=== PATIENT | female | born 1970 | race African-American/Black ===

== ENCOUNTER 2018-05-19 21:09 | Emergency (ER) | payer BC ==
[2018-05-19] MEDS ORDERED: Ketorolac 60 MG/2 ML SDV IM ONE (22:09)
--- NOTE | 2018-05-19 22:12 | EDM.PDOC ---
ED HPI GENERAL MEDICAL PROBLEM - General Chief Complaint: Lower Extremity Injury/Pain Stated Complaint: SPOKE WITH NURSE Time Seen by Provider: 05/19/18 22:06 - History of Present Illness INITIAL COMMENTS - FREE TEXT/NARRATIVE: HISTORY AND PHYSICAL: History of present illness: The patient is a 39-year-old female who presents with right knee pain for the last 2 days after she tripped and fell while at the gym. The patient said that she tripped over a rug and fell directly on the knee and has pain both in the anterior posterior aspects of the knee. She has no other complaints of right hip pain or distal right leg pain and did not pass out or black out and has no head neck or back pain. She has been using [id number] Aleve and last took a dose this morning. She says is worse with weightbearing and she has not been able to stay off of it. Review of systems: As per history of present illness and below otherwise all systems reviewed and negative. Past medical history: As per history of present illness and as reviewed below otherwise noncontributory. Surgical history: As per history of present illness and as reviewed below otherwise noncontributory. Social history: No reported history of drug or alcohol abuse. Family history: As per history of present illness and as reviewed below otherwise noncontributory. Physical exam: HEENT: Atraumatic, normocephalic,, negative for conjunctival pallor or scleral icterus, mucous membranes moist, throat clear, neck supple, nontender, trachea midline. Lungs: Clear to auscultation, breath sounds equal bilaterally, chest nontender. Heart: S1S2, regular rate and rhythm no overt murmurs Abdomen: Soft, nondistended, nontender. NABS Pelvis: Stable nontender. No lateral hip tenderness Genitourinary: Deferred. Rectal: Deferred. Extremities: Atraumatic, negative for cords or calf pain. Neurovascular unremarkable. The patient has full range of motion of all extremities with limited active motion of the right knee but she is able to do it with discomfort. There are no palpable bony deformities appreciated of the knee and there is no distal tib-fib ankle or foot tenderness on the right nor any proximal thigh or hip pain on the right. There are no gross palpable bony deformities of the knee architecture and there is no joint effusion. Neuro: Awake, alert, oriented. Cranial nerves II through XII unremarkable. Cerebellum unremarkable. Motor and sensory unremarkable throughout. Exam nonfocal. Diagnostics: X-ray right knee Therapeutics: Toradol IM crutches and knee immobilizer Impression: Right knee injury Definitive disposition and diagnosis as appropriate pending reevaluation and review of above. Right Knee Pain Score (Numeric/FACES): 10 - Related Data Allergies Allergy/AdvReac Type Severity Reaction Status Date / Time No Known Allergies Allergy Verified 05/19/18 21:34 Home Meds: Home Meds Iron Polysaccharides Complex [Ferrex 150] 150 mg PO DAILY 30 Days #30 cap [Rx] Lisinopril [Prinivil] 20 mg PO DAILY 30 Days #60 tablet 11/30/17 [Rx] atorvaSTATin [Lipitor] 40 mg PO BEDTIME 30 Days #30 tablet 11/30/17 [Rx] metFORMIN [Glucophage XR] 500 mg PO BIDMEALS 30 Days #60 tab.er 11/30/17 [Rx] Past Medical History HEENT History: Reports: None Cardiovascular History: Reports: Hypertension Respiratory History: Reports: None Gastrointestinal History: Reports: None Genitourinary History: Reports: None 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: Musculoskeletal History: Reports: None Neurological History: Reports: None Psychiatric History: Reports: None Endocrine/Metabolic History: Reports: Diabetes, Type II Hematologic History: Reports: None Immunologic History: Reports: None Oncologic (Cancer) History: Reports: None Dermatologic History: Reports: None - Infectious Disease History Infectious Disease History: Reports: Measles, Mumps - Past Surgical History Head Surgeries/Procedures: Reports: None HEENT Surgical History: Reports: None Endocrine Surgical History: Reports: None Neurological Surgical History: Reports: None Musculoskeletal Surgical History: Reports: None Dermatological Surgical History: Reports: None Social & Family History - Family History Family Medical History: Noncontributory - Tobacco Use Smoking Status *Q: Never Smoker - Caffeine Use Caffeine Use: Reports: Coffee - Recreational Drug Use Recreational Drug Use: No Review of Systems - Review of Systems Review Of Systems: ROS reveals no pertinent complaints other than HPI. ED EXAM, GENERAL - Physical Exam Exam: See Below (See dictation) Course - Vital Signs Last Recorded V/S: Last Vital Signs Temp 36.8 C 05/19/18 21:35 Pulse 69 05/19/18 21:35 Resp 18 05/19/18 21:35 BP 185/87 H 05/19/18 21:35 Pulse Ox 99 05/19/18 21:35 - Orders/Labs/Meds Orders: Active Orders 24 hr Category Date Time Status DME for Discharge [COMM] Stat Oth 05/19/18 23:32 Ordered Meds: Medications Discontinued Medications Generic Name Dose Route Start Last Admin Trade Name Mariella PRN Reason Stop Dose Admin Ketorolac Tromethamine 60 mg 05/19/18 22:09 05/19/18 22:34 Toradol IM 05/19/18 22:10 60 mg ONETIME ONE Administration Departure - Departure Time of Disposition: 23:32 Disposition: Home, Self-Care 01 Condition: Good Clinical Impression: Right knee injury Qualifiers: Encounter type: initial encounter Qualified Code(s): S89.91XA - Unspecified injury of right lower leg, initial encounter - Discharge Information Forms: ED Department Discharge Additional Instructions: The following information is given to patients seen in the emergency department who are being discharged to home. This information is to outline your options for follow-up care. We provide all patients seen in our emergency department with a follow-up referral. The need for follow-up, as well as the timing and circumstances, are variable depending upon the specifics of your emergency department visit. If you don't have a primary care physician on staff, we will provide you with a referral. We always advise you to contact your personal physician following an emergency department visit to inform them of the circumstance of the visit and for follow-up with them and/or the need for any referrals to a consulting specialist. The emergency department will also refer you to a specialist when appropriate. This referral assures that you have the opportunity for followup care with a specialist. All of these measure are taken in an effort to provide you with optimal care, which includes your followup. Under all circumstances we always encourage you to contact your private physician who remains a resource for coordinating your care. When calling for followup care, please make the office aware that this follow-up is from your recent emergency room visit. If for any reason you are refused follow-up, please contact the [facility] emergency department at and ask to speak to the emergency department charge nurse. [facility]--Orthopedic clinic Professional Building [address] [place] [id number] Ice and elevate the area as much as possible and wear knee immobilizer at all times your up and about and you may remove at sleep time. Use crutches at all times until you're followed up in the clinic. These call our orthopedics clinic in the morning for follow-up and continue to use [id number] medications for pain management such as Motrin and Aleve and Tylenol. Return to ER as needed and as discussed - My Orders Last 24 Hours: My Active Orders 05/19/18 23:32 DME for Discharge [COMM] Stat - Assessment/Plan Last 24 Hours: My Active Orders 05/19/18 23:32 DME for Discharge [COMM] Stat
--- NOTE | 2018-05-19 23:19 | CR ---
Indication: Fall Technique: Right knee 3 views Comparison: None Findings: Bones: Alignment is normal. No fractures or bone lesions. Joint spaces: No dislocation. Moderate knee effusion. Soft tissues: Unremarkable. Impression: No evidence of fracture or dislocation. Moderate knee effusion. Dictated by Kenrick Kinsey MD @ May 19 2018 11:14PM Signed by Dr. Kenrick Kinsey @ May 19 2018 11:17PM
== END 2018-05-20 00:19 | disposition home or self-care (01) ==
LOC: MW.ED 21:09
DX: S89.91XA Unspecified injury of right lower leg, initial encounter (principal); E11.9 Type 2 diabetes mellitus without complications; I10 Essential (primary) hypertension; Z79.899 Other long term (current) drug therapy; W01.0XXA Fall on same level from slipping, tripping and stumbling without subsequent striking against object, initial encounter
CPT/HCPCS: 73562; 96372; 99283; J1885

== ENCOUNTER 2018-06-10 06:56 | Day surgery (SDC) | payer BC ==
[~2018-06-10 06:56] MED LIST: Lactated Ringers 1,000 ML IV SCH; Sodium Chloride 0.9% 10 ML SDV IV PRN; Sodium Chloride 0.9% 10 ML Syringe FLUSH PRN; Sodium Chloride 0.9% 2.5 ML Syringe FLUSH PRN
[2018-06-10] MEDS ORDERED: Lidocaine 2% 5 ML SDV ONE (06:58)
[2018-06-10] MEDS ORDERED: Ondansetron 4 MG/2 ML SDV ONE (06:58)
[2018-06-10] MEDS ORDERED: Midazolam 1 MG/ML 2 ML SDV ONE (06:59)
[2018-06-10] MEDS ORDERED: fentaNYL 250 MCG/5 ML SDV ONE (06:59)
[2018-06-10] MEDS ORDERED: Propofol 200 MG/20 ML SDV ONE (06:59)
[2018-06-10] MEDS ORDERED: Lidocaine 1% 20 ML MDV ONE (07:33)
[2018-06-10] MEDS ORDERED: ceFAZolin 2 GM in Premix Bag 1 BAG IV SCH (08:00)
[2018-06-10] MEDS ORDERED: Acetaminophen/HYDROcodone 325-5 MG Tab PO PRN (08:00)
[2018-06-10] MEDS ORDERED: ceFAZolin 1 GM Vial ONE (08:06)
[2018-06-10] MEDS ORDERED: Sodium Chloride 0.9% 20 ML ONE (08:06)
--- NOTE | 2018-06-10 08:21 | PCM.PREANE ---
Preanesthetic Assessment - Anesthesia/Transfusion/Family Hx Anesthesia History: No Prior Anesthesia Family History of Anesthesia Reaction: No Transfusion History: No Prior Transfusion(s) - Review of Systems General: No Symptoms Pulmonary: No Symptoms Cardiovascular: No Symptoms Gastrointestinal: No Symptoms Neurological: No Symptoms Other: Reports: None - Physical Assessment NPO Status Date: 06/09/18 O2 Sat by Pulse Oximetry: 94 Respiratory Rate: 16 Vital Signs: Last Vital Signs Temp 97.9 F 06/10/18 07:13 Pulse 75 06/10/18 07:13 Resp 16 06/10/18 07:13 BP 177/90 H 06/10/18 07:13 Pulse Ox 94 L 06/10/18 07:13 Height: 5 ft 4 in Weight: 105.233 kg ASA Class: 2 Mental Status: Alert & Oriented x3 Airway Class: Mallampati = 2 Dentition: Reports: Normal Dentition ROM/Head Extension: Full Lungs: Clear to Auscultation, Normal Respiratory Effort Cardiovascular: Regular Rate, Regular Rhythm - Lab Values: Laboratory Last Values POC Glucose 136 mg/dL (60-110) H 06/10/18 07:20 Urine HCG, Qual NEGATIVE (NEGATIVE) 06/10/18 07:08 - Allergies Allergies/Adverse Reactions: Allergies Allergy/AdvReac Type Severity Reaction Status Date / Time No Known Allergies Allergy Verified 06/05/18 08:24 - Blood Blood Available: No - Anesthesia Plan Pre-Op Medication Ordered: None - Acknowledgements Anesthesia Type Planned: General Anesthesia Pt an Appropriate Candidate for the Planned Anesthesia: Yes Alternatives and Risks of Anesthesia Discussed w Pt/Guardian: Yes Pt/Guardian Understands and Agrees with Anesthesia Plan: Yes Additional Comments: PMH: htn, hle, DM2 PLAN: ga-lma PreAnesthesia Questionnaire HEENT History: Reports: Other (See Below) Other HEENT History: wears glasses Cardiovascular History: Reports: High Cholesterol, Hypertension Respiratory History: Reports: None Gastrointestinal History: Reports: None Genitourinary History: Reports: None [employer]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: Musculoskeletal History: Reports: None Neurological History: Reports: None Psychiatric History: Reports: None Endocrine/Metabolic History: Reports: Diabetes, Type II, Obesity/BMI 30+ Hematologic History: Reports: Anemia Immunologic History: Reports: None Oncologic (Cancer) History: Reports: None Dermatologic History: Reports: None - Infectious Disease History Infectious Disease History: Reports: Measles, Mumps - Past Surgical History Head Surgeries/Procedures: Reports: None HEENT Surgical History: Reports: None Cardiovascular Surgical History: Reports: None Respiratory Surgical History: Reports: None GI Surgical History: Reports: None Female Surgical History: Reports: None Endocrine Surgical History: Reports: None Neurological Surgical History: Reports: None Musculoskeletal Surgical History: Reports: None Oncologic Surgical History: Reports: None Dermatological Surgical History: Reports: None - SUBSTANCE USE Smoking Status *Q: Never Smoker Recreational Drug Use History: No - HOME MEDS Home Medications: Home Meds Iron Polysaccharides Complex [Ferrex 150] 150 mg PO DAILY 30 Days #30 cap [Rx] Lisinopril [Prinivil] 20 mg PO DAILY 30 Days #60 tablet 11/30/17 [Rx] atorvaSTATin [Lipitor] 40 mg PO BEDTIME 30 Days #30 tablet 11/30/17 [Rx] metFORMIN [Glucophage XR] 500 mg PO BIDMEALS 30 Days #60 tab.er 11/30/17 [Rx] - CURRENT (IN HOUSE) MEDS Current Meds: Current Medications Hydrocodone Bitart/Acetaminophen ([place] 325-5 Mg) 1 - 2 tab PO Q4H PRN PRN Reason: Pain Cefazolin Sodium/Dextrose 2 gm (/ Premix) 50 mls @ 100 mls/hr IV ONCALL IZABELA Lactated Ringer's (Ringers, Lactated) 1,000 mls @ 100 mls/hr IV ASDIRECTED IZABELA Lactated Ringer's (Ringers, Lactated) 1,000 mls @ 125 mls/hr IV ASDIRECTED [facility] Last Admin: 06/10/18 07:17 Dose: 125 mls/hr Sodium Chloride (Saline Flush) 10 ml FLUSH ASDIRECTED PRN PRN Reason: Keep Vein Open Sodium Chloride (Saline Flush) 2.5 ml FLUSH ASDIRECTED PRN PRN Reason: Keep Vein Open Sodium Chloride (Normal Saline) 10 ml IV ASDIRECTED PRN PRN Reason: IV Use Discontinued Medications Cefazolin Sodium (Ancef) Confirm Administered Dose 2 gm .ROUTE .STK-MED ONE Stop: 06/10/18 08:07 Fentanyl (Sublimaze) Confirm Administered Dose 250 mcg .ROUTE .STK-MED ONE Stop: 06/10/18 07:00 Sodium Chloride (Normal Saline) Confirm Administered Dose 20 mls @ as directed .ROUTE .STYaphie-MED ONE Stop: 06/10/18 08:07 Lidocaine (Xylocaine-Mpf 2%) Confirm Administered Dose 5 ml .ROUTE .STYaphie-MED ONE Stop: 06/10/18 06:59 Lidocaine HCl (Xylocaine 1%) Confirm Administered Dose 20 ml .ROUTE .Picanova-MED ONE Stop: 06/10/18 07:34 Midazolam HCl (Versed 1 Mg/Ml) Confirm Administered Dose 2 mg .ROUTE .Picanova-MED ONE Stop: 06/10/18 07:00 Ondansetron HCl (Zofran) Confirm Administered Dose 4 mg .ROUTE .Picanova-MED ONE Stop: 06/10/18 06:59 Propofol (Diprivan 20 Ml) Confirm Administered Dose 200 mg .ROUTE .Bloom StudioMED ONE Stop: 06/10/18 07:00
[2018-06-10] MEDS ORDERED: Albuterol 0.083% 2.5 MG/3 ML Neb Soln NEB PRN (08:38)
[2018-06-10] MEDS ORDERED: 50% Dextrose in Water 50 ML Syringe IVPUSH PRN (08:38)
[2018-06-10] MEDS ORDERED: EPINEPHrine 1:10,000 1 MG/10 ML Syringe IVPUSH PRN (08:38)
[2018-06-10] MEDS ORDERED: fentaNYL 100 MCG/2 ML SDV IVPUSH PRN (08:38)
[2018-06-10] MEDS ORDERED: Naloxone 0.4 MG/ML Syringe IVPUSH PRN (08:38)
[2018-06-10] MEDS ORDERED: Atropine 0.1 MG/ML 10 ML Syringe IVPUSH PRN ×2 (08:38)
[2018-06-10] MEDS ORDERED: ePHEDrine 50 MG/ML SDV ONE (08:44)
[2018-06-10] MEDS ORDERED: Glycopyrrolate 0.2 MG/ML SDV ONE (08:47)
--- NOTE | 2018-06-10 09:06 | PCM.OPNOTE ---
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
--- NOTE | 2018-06-10 10:09 | PCM.POSTAN ---
POST ANESTHESIA ASSESSMENT - MENTAL STATUS Mental Status: Alert, Oriented - RESPIRATORY Respiratory Status: Respiratory Rate WNL, Airway Patent, O2 Saturation Stable - CARDIOVASCULAR CV Status: Pulse Rate WNL, Blood Pressure Stable - GASTROINTESTINAL GI Status: No Symptoms - POST OP HYDRATION Hydration Status: Adequate & Stable
--- NOTE | 2018-06-10 10:09 | PCM48HPAN ---
Post Anesthesia Note - EVALUATION WITHIN 48HRS OF ANESTHETIC Vital Signs in Normal Range: Yes Patient Participated in Evaluation: Yes Respiratory Function Stable: Yes Airway Patent: Yes Cardiovascular Function Stable: Yes Hydration Status Stable: Yes Pain Control Satisfactory: Yes Nausea and Vomiting Control Satisfactory: Yes Mental Status Recovered: Yes Resp Rate: 16
--- NOTE | 2018-06-10 13:49 | OR ---
SURGEON: Cami Galindo MD DATE OF PROCEDURE: 06/10/2018 PREOPERATIVE DIAGNOSIS: Right knee medial femoral condyle chondromalacia. POSTOPERATIVE DIAGNOSIS: Right knee medial femoral condyle chondromalacia. PROCEDURE: Right knee arthroscopy with chondroplasty of the medial femoral condyle. GEODETIC SURVEYOR: Adriana Morales RN. ANESTHESIA: General. ESTIMATED BLOOD LOSS: 5 mL. TOURNIQUET TIME: 10 minutes. COMPLICATIONS: None. DVT PROPHYLAXIS: Not indicated. IMPLANTS USED: None. BRIEF HISTORY: Tammy is a 47-year-old female, who has had complaint of progressive right knee pain following an injury while working out. An MRI did show damage to the cartilage along the medial femoral condyle. Due to her lack of response to conservative treatment, I did recommend surgical intervention. The risks and goals of the procedure were discussed with the patient and were documented preoperatively. She agreed to proceed. DESCRIPTION OF PROCEDURE: The patient was properly identified and brought to the operating room. She was transferred from the OR cart and placed on the operating table in supine position. General anesthesia was administered. After adequate anesthesia was obtained, a well-padded tourniquet was applied to the right lower extremity. The right lower extremity was then prepped in standard fashion using ChloraPrep solution. It was then sterilely draped. A time-out was performed to ensure correct site and procedure. Preoperative antibiotics were given. The surgical site had been marked preoperatively. An Esmarch was used to exsanguinate the right lower extremity. The tourniquet was inflated to 250 mmHg. A lateral portal arthrotomy was established. Blunt trocar and cannula were introduced into the suprapatellar pouch. Camera, inflow, and outflow were assembled. No significant synovitis was noted within the suprapatellar space. The patellofemoral joint was then visualized. Minor degenerative changes were noted along the central portion of the patella. No degenerative changes were noted along the trochlear groove. The patella appeared to track centrally. I then extended down the medial and lateral gutter. No loose bodies were identified. I then entered the medial compartment. A medial portal arthrotomy was established and a probe was inserted. The meniscus was extensively probed and found to be intact. The medial tibial plateau also showed no degenerative findings. There was minor fissuring of the medial femoral condyle along the weightbearing surface. This was probed and found to be intact. Her knee was flexed to approximately 70 degrees and the chondral injury that was noted on MRI was visualized along the posterior aspect of the medial femoral condyle. Loose cartilage was noted. A 4.5 mm shaver was then introduced and a chondroplasty was performed to remove the loose fragment. The defect measured approximately 10 mm x 10 mm with 5 mm x 5 mm being full thickness. This did not contact the tibia until the knee was flexed to approximately 70 degrees. The defect was again probed and no remaining loose cartilage was noted. I then entered the notch. Both the ACL and PCL were visualized and probed and found to be intact. I then entered the lateral compartment. The lateral meniscus was extensively probed and found to be intact. Minor grade 1 to grade 2 degenerative changes were noted diffusely along the lateral tibial plateau. No degenerative changes were noted to the lateral femoral condyle. I then re-entered the patellofemoral joint. The patella was probed and no loose cartilage was noted. Instruments were then removed from the knee. The portal sites were closed with 3-0 nylon. 1% lidocaine was injected along the portal tracts. Xeroform gauze was placed over the wound and a bulky dressing was applied. The tourniquet was then deflated. She was awakened from her anesthetic and transferred back to the operating room cart. She was brought to recovery room in stable condition. All needle and sponge counts were correct. ROCKY / BA /[id number] DAMIEN
== END 2018-06-10 11:00 | disposition home or self-care (01) ==
LOC: MW.SDS 06:56 → EDSTATUS 09:00 → MW.SDS 11:00
PROVIDERS: ATTEND Orthopaedic Surgery
DX: M94.261 Chondromalacia, right knee (principal); I10 Essential (primary) hypertension; E11.9 Type 2 diabetes mellitus without complications; E78.00 Pure hypercholesterolemia, unspecified; Z79.84 Long term (current) use of oral hypoglycemic drugs; Z79.899 Other long term (current) drug therapy
CPT/HCPCS: 29877; 81025; 82962; 88304; A9270; J0330; J0690; J2001; J2250; J2405; J2704; J3010; J3490; J7120

== ENCOUNTER 2018-09-23 16:40 | Emergency (ER) | payer BC ==
[2018-09-23] MEDS ORDERED: cloNIDine 0.1 MG Tab PO ONE (16:56)
--- NOTE | 2018-09-23 16:56 | EDM.PDOC ---
ED HPI GENERAL MEDICAL PROBLEM - General Chief Complaint: Lower Extremity Injury/Pain Stated Complaint: SWOLLEN ANKLES Time Seen by Provider: 09/23/18 16:42 Source of Information: Reports: Patient History Limitations: Reports: No Limitations - History of Present Illness INITIAL COMMENTS - FREE TEXT/NARRATIVE: History of present illness: []Patient has been off her medicines for 2 months which were initially filled here in this emergency room. She states she did not follow up with a primary care doctor because she had to work. This morning she had a headache and has noticed that her legs have become more swollen throughout the day. She took Aleve without relief at 10:00 this morning and now wants to be reevaluated. Review of systems: As per history of present illness and below otherwise all systems reviewed and negative. Past medical history: As per history of present illness and as reviewed below otherwise noncontributory. Surgical history: As per history of present illness and as reviewed below otherwise noncontributory. Social history: No reported history of drug or alcohol abuse. Family history: As per history of present illness and as reviewed below otherwise noncontributory. Physical exam: General: Well developed, well nourished in NAD HEENT: Atraumatic, normocephalic, pupils reactive, negative for conjunctival pallor or scleral icterus, mucous membranes moist, throat clear, neck supple, nontender, trachea midline. Lungs: Clear to auscultation, breath sounds equal bilaterally, chest nontender. No rales Heart: S1S2, regular, negative for clicks, rubs, or JVD. Abdomen: NABS, Soft, nondistended, nontender. Negative for masses or hepatosplenomegaly. Negative for costovertebral tenderness. Pelvis: Stable nontender. Genitourinary: Deferred. Rectal: Deferred. Extremities: Atraumatic, 1+ pitting edema bilateral ankles negative for cords or calf pain. Neurovascular unremarkable. Neuro: Awake, alert, oriented. Cranial nerves II through XII unremarkable. Cerebellum unremarkable. Motor and sensory unremarkable throughout. Exam nonfocal. Skin:warm and dry Diagnostics: Bedside glucose-94 Therapeutics: Clonidine ED Course: Stable Impression: Noncompliance with medications Prescriptions: None Plan: Follow-up with primary care Definitive disposition and diagnosis as appropriate pending reevaluation and review of above. Bilateral Ankle Pain Score (Numeric/FACES): 9 - Related Data Allergies Allergy/AdvReac Type Severity Reaction Status Date / Time No Known Allergies Allergy Verified 09/23/18 16:49 Home Meds: Home Meds Iron Polysaccharides Complex [Ferrex 150] 150 mg PO DAILY 30 Days #30 cap [Rx] Lisinopril [Prinivil] 20 mg PO DAILY 30 Days #60 tablet 11/30/17 [Rx] atorvaSTATin [Lipitor] 40 mg PO BEDTIME 30 Days #30 tablet 11/30/17 [Rx] metFORMIN [Glucophage XR] 500 mg PO BIDMEALS 30 Days #60 tab.er 11/30/17 [Rx] Past Medical History HEENT History: Reports: Other (See Below) Other HEENT History: wears glasses Cardiovascular History: Reports: High Cholesterol, Hypertension Respiratory History: Reports: None Gastrointestinal History: Reports: None Genitourinary History: Reports: None 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: Musculoskeletal History: Reports: None Neurological History: Reports: None Psychiatric History: Reports: None Endocrine/Metabolic History: Reports: Diabetes, Type II, Obesity/BMI 30+ Hematologic History: Reports: Anemia Immunologic History: Reports: None Oncologic (Cancer) History: Reports: None Dermatologic History: Reports: None - Infectious Disease History Infectious Disease History: Reports: Measles, Mumps - Past Surgical History Head Surgeries/Procedures: Reports: None HEENT Surgical History: Reports: None Cardiovascular Surgical History: Reports: None Respiratory Surgical History: Reports: None GI Surgical History: Reports: None Female Surgical History: Reports: None Endocrine Surgical History: Reports: None Neurological Surgical History: Reports: None Musculoskeletal Surgical History: Reports: None Oncologic Surgical History: Reports: None Dermatological Surgical History: Reports: None Social & Family History - Family History Family Medical History: Noncontributory - Tobacco Use Smoking Status *Q: Never Smoker - Caffeine Use Caffeine Use: Reports: Coffee - Recreational Drug Use Recreational Drug Use: No Review of Systems - Review of Systems Review Of Systems: See Below ED EXAM, GENERAL - Physical Exam Exam: See Below Course - Vital Signs Last Recorded V/S: Last Vital Signs Temp 97.1 F 09/23/18 17:32 Pulse 53 L 09/23/18 17:32 Resp 18 09/23/18 16:47 BP 185/82 H 09/23/18 17:32 Pulse Ox 100 09/23/18 17:32 - Orders/Labs/Meds Orders: Active Orders 24 hr Category Date Time Status Blood Glucose Check, Bedside [RC] ONETIME Care 09/23/18 16:56 Active Meds: Medications Discontinued Medications Generic Name Dose Route Start Last Admin Trade Name Mariella PRN Reason Stop Dose Admin Clonidine HCl 0.2 mg 09/23/18 16:56 09/23/18 17:11 Catapres PO 09/23/18 16:57 0.2 mg ONETIME ONE Administration Departure - Departure Time of Disposition: 17:40 Disposition: Home, Self-Care 01 Condition: Good Clinical Impression: Noncompliance with medication regimen - Discharge Information *PRESCRIPTION DRUG MONITORING PROGRAM REVIEWED*: No *COPY OF PRESCRIPTION DRUG MONITORING REPORT IN PATIENT KEITH: No Referrals: PCP,Unknown [Primary Care Provider] - Forms: ED Department Discharge Additional Instructions: The following information is given to patients seen in the emergency department who are being discharged to home. This information is to outline your options for follow-up care. We provide all patients seen in our emergency department with a follow-up referral. The need for follow-up, as well as the timing and circumstances, are variable depending upon the specifics of your emergency department visit. If you don't have a primary care physician on staff, we will provide you with a referral. We always advise you to contact your personal physician following an emergency department visit to inform them of the circumstance of the visit and for follow-up with them and/or the need for any referrals to a consulting specialist. The emergency department will also refer you to a specialist when appropriate. This referral assures that you have the opportunity for follow-up care with a specialist. All of these measure are taken in an effort to provide you with optimal care, which includes your follow-up. Under all circumstances we always encourage you to contact your private physician who remains a resource for coordinating your care. When calling for follow-up care, please make the office aware that this follow-up is from your recent emergency room visit. If for any reason you are refused follow-up, please contact the [facility] Emergency Department at and asked to speak to the emergency department charge nurse. [facility] [address] [place] [id number] - My Orders Last 24 Hours: My Active Orders 09/23/18 16:56 Blood Glucose Check, Bedside [] ONETIME - Assessment/Plan Last 24 Hours: My Active Orders 09/23/18 16:56 Blood Glucose Check, Bedside [] ONETIME
== END 2018-09-23 17:53 | disposition home or self-care (01) ==
LOC: MW.ED 16:40
DX: M25.472 Effusion, left ankle (principal); M25.471 Effusion, right ankle; Z91.14 Patient's other noncompliance with medication regimen
CPT/HCPCS: 99283; A9270; 99282

== ENCOUNTER 2019-02-09 18:18 | Observation (INO) | payer BC ==
[2019-02-09] MEDS ORDERED: Sodium Chloride 0.9% 2.5 ML Syringe FLUSH PRN (18:25)
[2019-02-09] MEDS ORDERED: Sodium Chloride 0.9% 10 ML Syringe FLUSH PRN (18:25)
[2019-02-09 18:54] LABS: BLOOD UREA NITROGEN,BUN 16 mg/dL (7.0-18.0); CARBON DIOXIDE,CO2 23.2 mmol/L (21.0-32.0); CHLORIDE,CL 105 mmol/L (98-107); GLUCOSE RANDOM 171 mg/dL (74-106); SODIUM,NA 138 mmol/L (136-145)
--- NOTE | 2019-02-09 19:31 | CR ---
Indication: Chest pain. SOB. Cough Technique: Chest 1 view Comparison: 11/30/2017 Findings/Impression: Cardiovascular and mediastinum: Stable cardiomediastinal silhouette. Lungs and pleural space: Lungs are clear. No sign of infiltrate or mass. No sign of pleural effusion. No pneumothorax. Bones and soft tissues: No significant findings. Dictated by Chucky Villareal MD @ 02/09/2019 7:29:35 PM Dictated by: Chucky Villareal MD @ 02/09/2019 19:29:39 (Electronically Signed)
[2019-02-09] MEDS ORDERED: Aspirin 81 MG Tab.Chew PO ONE (19:48)
[2019-02-09] MEDS ORDERED: NITROGLYCERIN 2.5 MG PO ONE (19:49)
[2019-02-09] MEDS ORDERED: Nitroglycerin 2% Oint 1 GM UD Packet TOP ONE (19:58)
[2019-02-09] MEDS ORDERED: Nitroglycerin 2% Oint 1 GM UD Packet ONE (19:58)
--- NOTE | 2019-02-09 20:03 | EDM.PDOC ---
ED HPI GENERAL MEDICAL PROBLEM - General Chief Complaint: Chest Pain Stated Complaint: CHEST PAIN,COLD SYMPTOMS Time Seen by Provider: 02/09/19 19:30 Source of Information: Reports: Patient History Limitations: Reports: No Limitations - History of Present Illness INITIAL COMMENTS - FREE TEXT/NARRATIVE: 48-year-old female noncompliant with medication. Patient has a history of hypertension and diabetes. Patient also has a family history of cardiac Vascular disease. Patient presents with a 3-hour history of chest pain described as 9/10 nausea vomiting. Patient states she got scared and came to the hospital when she began to vomit. She now states she has 1-2 over 10 chest pain and feels better. Is hypertensive at this time a blood pressure 170/20. 2/10 chest pain Onset: Today Onset Date: 02/09/19 Duration: Hour(s): (3), Improving Location: Reports: Chest Quality: Reports: Dull Severity: Moderate Worsens with: Reports: None Associated Symptoms: Reports: Chest Pain, Cough, Nausea/Vomiting mid chest Pain Score (Numeric/FACES): 9 - Related Data Allergies Allergy/AdvReac Type Severity Reaction Status Date / Time No Known Allergies Allergy Verified 02/09/19 18:24 Home Meds: Home Meds Iron Polysaccharides Complex [Ferrex 150] 150 mg PO DAILY 30 Days #30 cap [Rx] atorvaSTATin [Lipitor] 40 mg PO BEDTIME 30 Days #30 tablet 11/30/17 [Rx] lisinopriL [Prinivil] 20 mg PO DAILY 30 Days #60 tablet 11/30/17 [Rx] metFORMIN [Glucophage XR] 500 mg PO BIDMEALS 30 Days #60 tab.er 11/30/17 [Rx] Past Medical History HEENT History: Reports: Other (See Below) Other HEENT History: wears glasses Cardiovascular History: Reports: High Cholesterol, Hypertension Respiratory History: Reports: None Gastrointestinal History: Reports: None Genitourinary History: Reports: None 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: Musculoskeletal History: Reports: None Neurological History: Reports: None Psychiatric History: Reports: None Endocrine/Metabolic History: Reports: Diabetes, Type II, Obesity/BMI 30+ Hematologic History: Reports: Anemia Immunologic History: Reports: None Oncologic (Cancer) History: Reports: None Dermatologic History: Reports: None - Infectious Disease History Infectious Disease History: Reports: Measles, Mumps - Past Surgical History Head Surgeries/Procedures: Reports: None HEENT Surgical History: Reports: None Cardiovascular Surgical History: Reports: None Respiratory Surgical History: Reports: None GI Surgical History: Reports: None Female Surgical History: Reports: None Endocrine Surgical History: Reports: None Neurological Surgical History: Reports: None Musculoskeletal Surgical History: Reports: None Oncologic Surgical History: Reports: None Dermatological Surgical History: Reports: None Social & Family History - Family History Family Medical History: Noncontributory - Tobacco Use Smoking Status *Q: Never Smoker - Caffeine Use Caffeine Use: Reports: Coffee - Recreational Drug Use Recreational Drug Use: No ED ROS GENERAL - Review of Systems Review Of Systems: See Below Constitutional: Reports: No Symptoms HEENT: Reports: No Symptoms Respiratory: Reports: Shortness of Breath, Cough Cardiovascular: Reports: Chest Pain, Blood Pressure Problem Endocrine: Reports: No Symptoms GI/Abdominal: Reports: No Symptoms Musculoskeletal: Reports: No Symptoms Skin: Reports: No Symptoms Neurological: Reports: No Symptoms Psychiatric: Reports: No Symptoms Hematologic/Lymphatic: Reports: No Symptoms Immunologic: Reports: No Symptoms ED EXAM, GENERAL - Physical Exam Exam: See Below Free Text/Narrative:: 48-year-old female presents to the ER with chest pain. On exam patient is awake alert and oriented. Patient complaining of 2 out of 10 chest pain. Patient's lungs are clear patient's chest is normal S1-S2 abdomen soft nontender patient has no flank pain all extremities are normal. Patient labs have been reviewed patient appears to not have an acute MT and EKG is normal at this time Since patient has significant risk factors and is noncompliant with medica patient will be monitored in observation for rule out trending cardiac enzymes. Exam Limited By: No Limitations General Appearance: Alert, WD/WN, No Apparent Distress Eye Exam: Bilateral Eye: Normal Fundi, Normal Inspection Ears: Normal External Exam, Normal Canal, Hearing Grossly Normal, Normal TMs Ear Exam: Bilateral Ear: Auricle Normal, Canal Normal, TM normal, Bleeding, Discharge, Tenderness, TM Dull, TM Red, TM Perforation Nose: Normal Inspection, Normal Mucosa, No Blood Throat/Mouth: Normal Inspection, Normal Lips, Normal Teeth, Normal Gums, Normal Oropharynx, Normal Voice, No Airway Compromise Head: Atraumatic, Normocephalic Neck: Normal Inspection, Supple, Non-Tender, Full Range of Motion Respiratory/Chest: No Respiratory Distress, Lungs Clear, Normal Breath Sounds, No Accessory Muscle Use, Chest Non-Tender Cardiovascular: Normal Peripheral Pulses, Regular Rate, Rhythm, No Edema, No JVD , No Murmur, No Rub, Tachycardia GI/Abdominal: Normal Bowel Sounds, Soft, Non-Tender, No Organomegaly, No Distention, No Abnormal Bruit, No Mass Back Exam: Normal Inspection, Full Range of Motion Extremities: Normal Inspection, Normal Range of Motion, Non-Tender, No Pedal Edema, Normal Capillary Refill Neurological: Alert, Oriented, CN II-XII Intact, Normal Cognition, Normal Gait, Normal Reflexes, No Motor/Sensory Deficits Psychiatric: Normal Affect, Normal Mood Skin Exam: Warm, Dry, Intact, Normal Color, No Rash Lymphatic: No Adenopathy EKG INTERPRETATION EKG Date: 02/09/19 Time: 20:05 Rhythm: NSR [place]: Normal ST-T: Other (changes) QT: Normal EKG Interpretation Comments: EEG is nonacute with nonspecific T wave changes with a conduction delay. With sinus rate no evidence of acute MT Course - Vital Signs Text/Narrative:: This 48-year-old female presents to the emergency room with chest pain lasting 3 hours radiating from her chest to her arms. Patient states that she became nauseated and vomited x1. Patient has never had this happen in the past. Risk factors for cardiac disease include hypertension and diabetes which she is noncompliant with. Patient also has a strong family history of strokes. When patient arrived to the emergency room she was complaining of 2 out of 10 chest pain and her pressure was slightly elevated with a systolic of 172. Patient is awake and alert and responsive. Physical exam was normal patient is obese complaining of substernal pain. Patient was given aspirin and nitro in the emergency room. Patient has normal cardiac enzymes and normal EKG. Because of patient's risk factors for cardiac disease and being noncompliant with medications, the patient will be admitted for observation with rule out serial cardiac enzymes. Patient was reminded of her risk factors and her noncompliance with medication was discussed at length. 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 Patient will be admitted to observation under Dr. Capone and is in stable condition at this time. Last Recorded V/S: Last Vital Signs Temp 98.0 F 02/09/19 18:21 Pulse 72 02/09/19 18:21 Resp 20 12/24/19 18:21 BP 198/92 H 02/09/19 18:32 Pulse Ox 98 02/09/19 18:21 - Orders/Labs/Meds Orders: Active Orders 24 hr Category Date Time Status Patient Status [ADT] Stat ADT 02/09/19 19:54 Ordered EKG Documentation Completion [RC] STAT Care 02/09/19 18:19 Active Sodium Chloride 0.9% [Saline Flush] Med 02/09/19 18:25 Active 10 ml FLUSH ASDIRECTED PRN Sodium Chloride 0.9% [Saline Flush] Med 02/09/19 18:25 Active 2.5 ml FLUSH ASDIRECTED PRN Saline Lock Insert [OM.PC] Stat Oth 02/09/19 18:25 Ordered Medication Orders Sodium Chloride (Saline Flush) 10 ml FLUSH ASDIRECTED PRN PRN Reason: Keep Vein Open Sodium Chloride (Saline Flush) 2.5 ml FLUSH ASDIRECTED PRN PRN Reason: Keep Vein Open Labs: Laboratory Tests 02/09/19 02/09/19 Range/Units 18:20 18:20 WBC 12.54 H (4.0-11.0) K/uL RBC 4.30 (4.30-5.90) M/uL Hgb 9.6 L (12.0-16.0) g/dL Hct 32.9 L (36.0-46.0) % MCV 76.5 L (80.0-98.0) fL MCH 22.3 L (27.0-32.0) pg MCHC 29.2 L (31.0-37.0) g/dL RDW Std Deviation 45.0 (28.0-62.0) fl RDW Coeff of Debbie 16 H (11.0-15.0) % Plt Count 406 H (150-400) K/uL MPV 9.30 (7.40-12.00) fL Neut % (Auto) 70.2 (48.0-80.0) % Lymph % (Auto) 21.1 (16.0-40.0) % Sullivan % (Auto) 7.7 (0.0-15.0) % Eos % (Auto) 0.8 (0.0-7.0) % Baso % (Auto) 0.2 (0.0-1.5) % Neut # (Auto) 8.8 H (1.4-5.7) K/uL Lymph # (Auto) 2.6 H (0.6-2.4) K/uL Sullivan # (Auto) 1.0 H (0.0-0.8) K/uL Eos # (Auto) 0.1 (0.0-0.7) K/uL Baso # (Auto) 0.0 (0.0-0.1) K/uL Nucleated RBC % 0.0 /100WBC Nucleated RBCs # 0 K/uL Sodium 138 (136-145) mmol/L Potassium 4.0 (3.5-5.1) mmol/L Chloride 105 (98-107) mmol/L Carbon Dioxide 23.2 (21.0-32.0) mmol/L BUN 16 (7.0-18.0) mg/dL Creatinine 1.2 H (0.6-1.0) mg/dL Est Cr Clr Drug Dosing TNP Estimated GFR (MDRD) 57.9 ml/min Glucose 171 H (74-106) mg/dL Calcium 9.0 (8.5-10.1) mg/dL Total Bilirubin 0.1 L (0.2-1.0) mg/dL AST 18 (15-37) IU/L ALT 30 (14-63) IU/L Alkaline Phosphatase 89 (46-116) U/L Troponin I < 0.050 (0.000-0.056) ng/mL Total Protein 7.6 (6.4-8.2) g/dL Albumin 3.7 (3.4-5.0) g/dL Globulin 3.9 (2.6-4.0) g/dL Albumin/Globulin Ratio 0.9 (0.9-1.6) Meds: Medications Generic Name Dose Route Start Last Admin Trade Name Freq PRN Reason Stop Dose Admin Sodium Chloride 10 ml 02/09/19 18:25 Saline Flush FLUSH ASDIRECTED PRN Keep Vein Open Sodium Chloride 2.5 ml 02/09/19 18:25 Saline Flush FLUSH ASDIRECTED PRN Keep Vein Open Discontinued Medications Generic Name Dose Route Start Last Admin Trade Name Freq PRN Reason Stop Dose Admin Aspirin 324 mg 02/09/19 19:48 Aspirin PO 02/09/19 19:49 ONETIME ONE Nitroglycerin 2.5 mg 02/09/19 19:49 Nitroglycerin PO 02/09/19 19:50 ONETIME ONE Departure - Departure Time of Disposition: 20:10 Disposition: Refer to Observation Condition: Good Clinical Impression: Chest pain, Hypertension Referrals: PCP,Unknown [Primary Care Provider] - Sepsis Event Note - Evaluation Sepsis Screening Result: No Definite Risk - Focused Exam Vital Signs: Vital Signs Temp Pulse Resp BP Pulse Ox 02/09/19 18:32 198/92 H 02/09/19 18:21 98.0 F 72 20 255/123 H 98 Date Exam was Performed: 02/09/19 Time Exam was Performed: 19:57 - My Orders Last 24 Hours: My Active Orders 02/09/19 19:54 Patient Status [ADT] Stat - Assessment/Plan Last 24 Hours: My Active Orders 02/09/19 19:54 Patient Status [ADT] Stat
[2019-02-09] MEDS ORDERED: Hydrochlorothiazide 25 MG Tab PO ONE (22:33)
--- NOTE | 2019-02-09 22:44 | PCM.HP.2 ---
H&P History of Present Illness - General Date of Service: 02/09/19 Admit Problem/Dx: Admission Diagnosis/Problem Admission Diagnosis/Problem Chest pain, rule out acute myocardial infarction - History of Present Illness Initial Comments - Free Text/Narative: 48 yo female with pmh of HTN and DM who presents with 12 history of chest pain. PAtient reports this morning after her immersion metal cleaner she had a headache followed by chest pain which she describes as pressure. She had nausea and threw up. She went to sleep hoping that the symptoms would go away. She woke up at 1:00 pm today still having chest pain. As it was not going away she went to the ED this evening. IN the ED her blood pressure was noted to be 255/110. She was given aspirin and nitro with resolution of her symptoms. She reports she stopped taking all her medications a few months ago as she felt they were making her feel worse. mid chest Pain Score (Numeric/FACES): 9 - Related Data Allergies/Adverse Reactions: Allergies Allergy/AdvReac Type Severity Reaction Status Date / Time No Known Allergies Allergy Verified 02/10/19 03:19 Home Medications: Home Meds Iron Polysaccharides Complex [Ferrex 150] 150 mg PO DAILY 30 Days #30 cap [Rx] atorvaSTATin [Lipitor] 40 mg PO BEDTIME 30 Days #30 tablet 11/30/17 [Rx] Acetaminophen [Tylenol] 650 mg PO Q6H PRN tablet 02/10/19 [Rx] hydroCHLOROthiazide [Hydrochlorothiazide] 25 mg PO DAILY #10 tab 02/10/19 [Rx] metFORMIN [Glucophage XR] 500 mg PO DAILY 30 Days #60 tab.er 02/10/19 [Rx] Past Medical History HEENT History: Reports: Other (See Below) Other HEENT History: wears glasses Cardiovascular History: Reports: High Cholesterol, Hypertension Respiratory History: Reports: None Gastrointestinal History: Reports: None Genitourinary History: Reports: None COMPLIANCE INTERN History: Reports: Musculoskeletal History: Reports: None Neurological History: Reports: None Psychiatric History: Reports: None Endocrine/Metabolic History: Reports: Diabetes, Type II, Obesity/BMI 30+ Hematologic History: Reports: Anemia Immunologic History: Reports: None Oncologic (Cancer) History: Reports: None Dermatologic History: Reports: None - Infectious Disease History Infectious Disease History: Reports: Measles, Mumps - Past Surgical History Head Surgeries/Procedures: Reports: None HEENT Surgical History: Reports: None Cardiovascular Surgical History: Reports: None Respiratory Surgical History: Reports: None GI Surgical History: Reports: None Female Surgical History: Reports: None Endocrine Surgical History: Reports: None Neurological Surgical History: Reports: None Musculoskeletal Surgical History: Reports: None Oncologic Surgical History: Reports: None Dermatological Surgical History: Reports: None Social & Family History - Family History Family Medical History: Noncontributory - Tobacco Use Smoking Status *Q: Never Smoker - Caffeine Use Caffeine Use: Reports: Coffee, Tea - Recreational Drug Use Recreational Drug Use: No H&P Review of Systems - Review of Systems: Review Of Systems: Comprehensive ROS is negative, except as noted in HPI. Exam - Exam Exam: See Below - Vital Signs Vital Signs: Last Vital Signs Temp 36.3 C 02/09/19 21:42 Pulse 97 02/09/19 21:42 Resp 15 02/09/19 21:42 BP 153/67 H 02/09/19 21:42 Pulse Ox 96 02/09/19 21:42 Weight: 106.4 kg - Exam General: Alert, Oriented Lungs: Clear to Auscultation, Normal Respiratory Effort Cardiovascular: Regular Rate, Regular Rhythm GI/Abdominal Exam: Soft, Non-Tender Extremities: Non-Tender, No Pedal Edema Skin: Warm, Dry, Intact - Patient Data Lab Results Last 24 hrs: Laboratory Results - last 24 hr 02/09/19 02/09/19 Range/Units 18:20 18:20 WBC 12.54 H (4.0-11.0) K/uL RBC 4.30 (4.30-5.90) M/uL Hgb 9.6 L (12.0-16.0) g/dL Hct 32.9 L (36.0-46.0) % MCV 76.5 L (80.0-98.0) fL MCH 22.3 L (27.0-32.0) pg MCHC 29.2 L (31.0-37.0) g/dL RDW Std Deviation 45.0 (28.0-62.0) fl RDW Coeff of Debbie 16 H (11.0-15.0) % Plt Count 406 H (150-400) K/uL MPV 9.30 (7.40-12.00) fL Neut % (Auto) 70.2 (48.0-80.0) % Lymph % (Auto) 21.1 (16.0-40.0) % [place] % (Auto) 7.7 (0.0-15.0) % Eos % (Auto) 0.8 (0.0-7.0) % Baso % (Auto) 0.2 (0.0-1.5) % Neut # (Auto) 8.8 H (1.4-5.7) K/uL Lymph # (Auto) 2.6 H (0.6-2.4) K/uL Saunders # (Auto) 1.0 H (0.0-0.8) K/uL Eos # (Auto) 0.1 (0.0-0.7) K/uL Baso # (Auto) 0.0 (0.0-0.1) K/uL Nucleated RBC % 0.0 /100WBC Nucleated RBCs # 0 K/uL Sodium 138 (136-145) mmol/L Potassium 4.0 (3.5-5.1) mmol/L Chloride 105 (98-107) mmol/L Carbon Dioxide 23.2 (21.0-32.0) mmol/L BUN 16 (7.0-18.0) mg/dL Creatinine 1.2 H (0.6-1.0) mg/dL Est Cr Clr Drug Dosing TNP Estimated GFR (MDRD) 57.9 ml/min Glucose 171 H (74-106) mg/dL Calcium 9.0 (8.5-10.1) mg/dL Total Bilirubin 0.1 L (0.2-1.0) mg/dL AST 18 (15-37) IU/L ALT 30 (14-63) IU/L Alkaline Phosphatase 89 (46-116) U/L Troponin I < 0.050 (0.000-0.056) ng/mL Total Protein 7.6 (6.4-8.2) g/dL Albumin 3.7 (3.4-5.0) g/dL Globulin 3.9 (2.6-4.0) g/dL Albumin/Globulin Ratio 0.9 (0.9-1.6) Result Diagrams: 02/10/19 05:53 02/10/19 05:53 Jeb Results Last 24 hrs: Microbiology 02/09/19 19:10 Influenza Type A Antigen Screen - Final Nasopharyngeal Swab NEGATIVE INFLUENZA A VIRUS AG REFERENCE RANGE: NEGATIVE Influenza Type B Antigen Screen - Final NEGATIVE INFLUENZA B VIRUS AG REFERENCE RANGE: NEGATIVE Sepsis Event Note - Evaluation Sepsis Screening Result: No Definite Risk - Focused Exam Vital Signs: Vital Signs Temp Pulse Resp BP Pulse Ox 02/09/19 21:42 36.3 C 97 15 153/67 H 96 02/09/19 21:14 66 16 155/58 H 99 02/09/19 20:24 66 16 156/56 H 99 02/09/19 18:32 198/92 H 02/09/19 18:21 36.7 C 72 20 255/123 H 98 Date Exam was Performed: 02/13/19 Time Exam was Performed: 12:14 Problem List Initiated/Reviewed/Updated: Yes Orders Last 24hrs: Active Orders 24 hr Category Date Time Status Patient Status [ADT] Stat ADT 02/09/19 19:54 Active Antiembolic Devices [RC] PER UNIT ROUTINE Care 02/09/19 22:35 Active Blood Glucose Check, Bedside [RC] TIDMEALS Care 02/09/19 22:35 Active EKG Documentation Completion [RC] STAT Care 02/09/19 18:19 Active Oxygen Therapy [RC] PRN Care 02/09/19 22:35 Active Up ad Anne [RC] ASDIRECTED Care 02/09/19 22:35 Active VTE/DVT Education [RC] PER UNIT ROUTINE Care 02/09/19 22:35 Active Vital Signs [RC] Q4H Care 02/09/19 22:35 Active [employer] [employer] Diet [DIET] Diet 02/09/19 Breakfast Active BASIC METABOLIC PANEL,BMP [CHEM] AM Lab 02/10/19 05:11 Ordered CBC WITH AUTO DIFF [HEME] AM Lab 02/10/19 05:11 Ordered TROPONIN I [CHEM] Q8H Lab 02/09/19 22:04 Received TROPONIN I [CHEM] Q8H Lab 02/10/19 05:44 Ordered UA RFX JEB AND CULT IF INDIC [URIN] Routine Lab 02/09/19 22:33 Ordered Sodium Chloride 0.9% @ 150 MLS/HR (1,000ml) Med 02/09/19 22:45 Ordered Sodium Chloride 0.9% [Normal Saline] 1,000 ml IV ASDIRECTED Sodium Chloride 0.9% [Saline Flush] Med 02/09/19 18:25 Active 10 ml FLUSH ASDIRECTED PRN Sodium Chloride 0.9% [Saline Flush] Med 02/09/19 18:25 Active 2.5 ml FLUSH ASDIRECTED PRN Saline Lock Insert [OM.PC] Stat Oth 02/09/19 18:25 Ordered Sequential Compression Device [OM.PC] Per Unit Routine Oth 02/09/19 22:35 Ordered Resuscitation Status Routine Resus Stat 02/09/19 22:35 Ordered Medication Orders Sodium Chloride (Normal Saline) 1,000 mls @ 150 mls/hr IV ASDIRECTED IZABELA Stop: 02/10/19 05:24 Sodium Chloride (Saline Flush) 10 ml FLUSH ASDIRECTED PRN PRN Reason: Keep Vein Open Sodium Chloride (Saline Flush) 2.5 ml FLUSH ASDIRECTED PRN PRN Reason: Keep Vein Open Assessment/Plan Comment:: 48 yo female admitted with chest pain. We will trend cardiac enzymes.
[2019-02-09] MEDS ORDERED: Sodium Chloride 0.9% 1,000 ML IV SCH (22:45)
[2019-02-09] MEDS ORDERED: Acetaminophen 325 MG Tab PO PRN (22:51)
[2019-02-10 06:41] LABS: BLOOD UREA NITROGEN,BUN 12 mg/dL (7.0-18.0); CARBON DIOXIDE,CO2 24.4 mmol/L (21.0-32.0); CHLORIDE,CL 105 mmol/L (98-107); GLUCOSE RANDOM 172 mg/dL (74-106); SODIUM,NA 138 mmol/L (136-145)
--- NOTE | 2019-02-10 11:02 | PCM.DCSUM1 ---
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 On arrival to ED blood pressure was noted to be elevated 255/110. Aspirin and nitroglycerin were given with resolution of symptoms. Patient on arrival endorses not taking any of her medications for chronic conditions secondary to side effects. G showed no acute ST elevations or signs of ischemia. Patient was held overnight with moderate control of her blood pressure; troponin was trended ultimately yielding negative troponins x3. On day of discharge discussed patient compliance of medications; decrease dose of metformin to once daily and switched out lisinopril to hydrochlorothiazide patient does have a follow-up with her primary care on February 22, 2019. ; Advised to follow-up to discuss current medication changes and titrations if necessary. Patient throughout stay did not endorse any pain or discomfort; day of discharge patient was stable and asymptomatic. Discharge condition: Disposition: Home Discharge medications: Stable - Discharge Data Discharge Date: 02/10/19 Discharge Disposition: Home, Self-Care 01 Condition: Good - Referral to Home Health Primary Care Physician: PCP Unknown - Patient Instructions Diet: Diabetic Diet Notify Provider of: Fever, Increased Pain, Nausea and/or Vomiting Other/Special Instructions: Please discontinue using the Lisinopril. Start the new medication; Hydrochlorothiazide. take Metformin once daily for now. Continue the atorvastatin as well. Please follow up with your PCP as scheduled for February 22 2019 to discuss adjustments t o your medication. if your medication is calling any side effects; please contact your provider. - Discharge Plan *PRESCRIPTION DRUG MONITORING PROGRAM REVIEWED*: No *COPY OF PRESCRIPTION DRUG MONITORING REPORT IN PATIENT KEITH: No Prescriptions/Med Rec: hydroCHLOROthiazide [Hydrochlorothiazide] 25 mg PO DAILY #10 tab Home Medications: Home Meds Iron Polysaccharides Complex [Ferrex 150] 150 mg PO DAILY 30 Days #30 cap 10/14/ 18 [Rx] atorvaSTATin [Lipitor] 40 mg PO BEDTIME 30 Days #30 tablet 11/30/17 [Rx] Acetaminophen [Tylenol] 650 mg PO Q6H PRN tablet 02/10/19 [Rx] hydroCHLOROthiazide [Hydrochlorothiazide] 25 mg PO DAILY #10 tab 02/10/19 [Rx] metFORMIN [Glucophage XR] 500 mg PO DAILY 30 Days #60 tab.er 02/10/19 [Rx] Patient Handouts: Nonspecific Chest Pain, Nams-iw-Swny, Hydrochlorothiazide, HCTZ; Olmesartan Tablets Referrals: PCP,Unknown [Primary Care Provider] - - Discharge Summary/Plan Comment DC Time >30 min.: No - Patient Data Vitals - Most Recent: Last Vital Signs Temp 97.5 F 02/10/19 07:00 Pulse 57 L 02/10/19 07:00 Resp 18 02/10/19 07:00 BP 156/70 H 02/10/19 07:00 Pulse Ox 99 02/10/19 07:00 Weight - Most Recent: 106.4 kg I&O - Last 24 hours: Intake & Output 02/09/19 02/10/19 02/10/19 22:59 06:59 14:59 Intake Total 450 Output Total 1200 Balance -750 Lab Results - Last 24 hrs: Laboratory Results - last 24 hr 02/09/19 02/09/19 02/09/19 Range/Units 18:20 18:20 22:04 WBC 12.54 H (4.0-11.0) K/uL RBC 4.30 (4.30-5.90) M/uL Hgb 9.6 L (12.0-16.0) g/dL Hct 32.9 L (36.0-46.0) % MCV 76.5 L (80.0-98.0) fL MCH 22.3 L (27.0-32.0) pg MCHC 29.2 L (31.0-37.0) g/dL RDW Std Deviation 45.0 (28.0-62.0) fl RDW Coeff of Debbie 16 H (11.0-15.0) % Plt Count 406 H (150-400) K/uL MPV 9.30 (7.40-12.00) fL Neut % (Auto) 70.2 (48.0-80.0) % Lymph % (Auto) 21.1 (16.0-40.0) % [place] % (Auto) 7.7 (0.0-15.0) % Eos % (Auto) 0.8 (0.0-7.0) % Baso % (Auto) 0.2 (0.0-1.5) % Neut # (Auto) 8.8 H (1.4-5.7) K/uL Lymph # (Auto) 2.6 H (0.6-2.4) K/uL [place] # (Auto) 1.0 H (0.0-0.8) K/uL Eos # (Auto) 0.1 (0.0-0.7) K/uL Baso # (Auto) 0.0 (0.0-0.1) K/uL Nucleated RBC % 0.0 /100WBC Nucleated RBCs # 0 K/uL Sodium 138 (136-145) mmol/L Potassium 4.0 (3.5-5.1) mmol/L Chloride 105 (98-107) mmol/L Carbon Dioxide 23.2 (21.0-32.0) mmol/L BUN 16 (7.0-18.0) mg/dL Creatinine 1.2 H (0.6-1.0) mg/dL Est Cr Clr Drug Dosing TNP Estimated GFR (MDRD) 57.9 ml/min Glucose 171 H (74-106) mg/dL Calcium 9.0 (8.5-10.1) mg/dL Total Bilirubin 0.1 L (0.2-1.0) mg/dL AST 18 (15-37) IU/L ALT 30 (14-63) IU/L Alkaline Phosphatase 89 (46-116) U/L Troponin I < 0.050 < 0.050 (0.000-0.056) ng/mL Total Protein 7.6 (6.4-8.2) g/dL Albumin 3.7 (3.4-5.0) g/dL Globulin 3.9 (2.6-4.0) g/dL Albumin/Globulin Ratio 0.9 (0.9-1.6) Urine Color Urine Appearance Urine pH (5.0-8.0) Ur Specific Sylva (1.001-1.035) Urine Protein (NEGATIVE) mg/dL Urine Glucose (UA) (NEGATIVE) mg/dL Urine Ketones (NEGATIVE) mg/dL Urine Occult Blood (NEGATIVE) Urine Nitrite (NEGATIVE) Urine Bilirubin (NEGATIVE) Urine Urobilinogen (<2.0) EU/dL Ur Leukocyte Esterase (NEGATIVE) 02/10/19 02/10/19 02/10/19 Range/Units 04:30 05:53 05:53 WBC 8.99 (4.0-11.0) K/uL RBC 3.82 L (4.30-5.90) M/uL Hgb 8.5 L (12.0-16.0) g/dL Hct 28.8 L (36.0-46.0) % MCV 75.4 L (80.0-98.0) fL MCH 22.3 L (27.0-32.0) pg MCHC 29.5 L (31.0-37.0) g/dL RDW Std Deviation 43.6 (28.0-62.0) fl RDW Coeff of Debbie 16 H (11.0-15.0) % Plt Count 367 (150-400) K/uL MPV 9.30 (7.40-12.00) fL Neut % (Auto) 73.1 (48.0-80.0) % Lymph % (Auto) 15.9 L (16.0-40.0) % [place] % (Auto) 9.7 (0.0-15.0) % Eos % (Auto) 1.1 (0.0-7.0) % Baso % (Auto) 0.2 (0.0-1.5) % Neut # (Auto) 6.6 H (1.4-5.7) K/uL Lymph # (Auto) 1.4 (0.6-2.4) K/uL [place] # (Auto) 0.9 H (0.0-0.8) K/uL Eos # (Auto) 0.1 (0.0-0.7) K/uL Baso # (Auto) 0.0 (0.0-0.1) K/uL Nucleated RBC % 0.0 /100WBC Nucleated RBCs # 0 K/uL Sodium (136-145) mmol/L Potassium (3.5-5.1) mmol/L Chloride (98-107) mmol/L Carbon Dioxide (21.0-32.0) mmol/L BUN (7.0-18.0) mg/dL Creatinine (0.6-1.0) mg/dL Est Cr Clr Drug Dosing Estimated GFR (MDRD) ml/min Glucose (74-106) mg/dL Calcium (8.5-10.1) mg/dL Total Bilirubin (0.2-1.0) mg/dL AST (15-37) IU/L ALT (14-63) IU/L Alkaline Phosphatase (46-116) U/L Troponin I < 0.050 (0.000-0.056) ng/mL Total Protein (6.4-8.2) g/dL Albumin (3.4-5.0) g/dL Globulin (2.6-4.0) g/dL Albumin/Globulin Ratio (0.9-1.6) Urine Color YELLOW Urine Appearance CLEAR Urine pH 6.0 (5.0-8.0) Ur Specific Sylva 1.020 (1.001-1.035) Urine Protein NEGATIVE (NEGATIVE) mg/dL Urine Glucose (UA) NEGATIVE (NEGATIVE) mg/dL Urine Ketones NEGATIVE (NEGATIVE) mg/dL Urine Occult Blood NEGATIVE (NEGATIVE) Urine Nitrite NEGATIVE (NEGATIVE) Urine Bilirubin NEGATIVE (NEGATIVE) Urine Urobilinogen 0.2 (<2.0) EU/dL Ur Leukocyte Esterase NEGATIVE (NEGATIVE) 02/10/19 Range/Units 05:53 WBC (4.0-11.0) K/uL RBC (4.30-5.90) M/uL Hgb (12.0-16.0) g/dL Hct (36.0-46.0) % MCV (80.0-98.0) fL MCH (27.0-32.0) pg MCHC (31.0-37.0) g/dL RDW Std Deviation (28.0-62.0) fl RDW Coeff of Debbie (11.0-15.0) % Plt Count (150-400) K/uL MPV (7.40-12.00) fL Neut % (Auto) (48.0-80.0) % Lymph % (Auto) (16.0-40.0) % [place] % (Auto) (0.0-15.0) % Eos % (Auto) (0.0-7.0) % Baso % (Auto) (0.0-1.5) % Neut # (Auto) (1.4-5.7) K/uL Lymph # (Auto) (0.6-2.4) K/uL [place] # (Auto) (0.0-0.8) K/uL Eos # (Auto) (0.0-0.7) K/uL Baso # (Auto) (0.0-0.1) K/uL Nucleated RBC % /100WBC Nucleated RBCs # K/uL Sodium 138 (136-145) mmol/L Potassium 4.0 (3.5-5.1) mmol/L Chloride 105 (98-107) mmol/L Carbon Dioxide 24.4 (21.0-32.0) mmol/L BUN 12 (7.0-18.0) mg/dL Creatinine 1.0 (0.6-1.0) mg/dL Est Cr Clr Drug Dosing 58.76 Estimated GFR (MDRD) > 60.0 ml/min Glucose 172 H (74-106) mg/dL Calcium 8.5 (8.5-10.1) mg/dL Total Bilirubin (0.2-1.0) mg/dL AST (15-37) IU/L ALT (14-63) IU/L Alkaline Phosphatase (46-116) U/L Troponin I (0.000-0.056) ng/mL Total Protein (6.4-8.2) g/dL Albumin (3.4-5.0) g/dL Globulin (2.6-4.0) g/dL Albumin/Globulin Ratio (0.9-1.6) Urine Color Urine Appearance Urine pH (5.0-8.0) Ur Specific Sylva (1.001-1.035) Urine Protein (NEGATIVE) mg/dL Urine Glucose (UA) (NEGATIVE) mg/dL Urine Ketones (NEGATIVE) mg/dL Urine Occult Blood (NEGATIVE) Urine Nitrite (NEGATIVE) Urine Bilirubin (NEGATIVE) Urine Urobilinogen (<2.0) EU/dL Ur Leukocyte Esterase (NEGATIVE) SANJIV Results - Last 24 hrs: Microbiology 02/09/19 19:10 Influenza Type A Antigen Screen - Final Nasopharyngeal Swab NEGATIVE INFLUENZA A VIRUS AG REFERENCE RANGE: NEGATIVE Influenza Type B Antigen Screen - Final NEGATIVE INFLUENZA B VIRUS AG REFERENCE RANGE: NEGATIVE Med Orders - Current: Current Medications Acetaminophen (Tylenol) 650 mg PO Q6H PRN PRN Reason: Pain Last Admin: 02/09/19 23:53 Dose: 650 mg Sodium Chloride (Saline Flush) 10 ml FLUSH ASDIRECTED PRN PRN Reason: Keep Vein Open Sodium Chloride (Saline Flush) 2.5 ml FLUSH ASDIRECTED PRN PRN Reason: Keep Vein Open Discontinued Medications Aspirin (Aspirin) 324 mg PO ONETIME ONE Stop: 02/09/19 19:49 Last Admin: 02/09/19 20:05 Dose: 324 mg Hydrochlorothiazide (Hydrochlorothiazide) 25 mg PO ONETIME ONE Stop: 02/09/19 22:34 Last Admin: 02/09/19 23:48 Dose: 25 mg Sodium Chloride (Normal Saline) 1,000 mls @ 150 mls/hr IV ASDIRECTED IZABELA Stop: 02/10/19 05:24 Last Admin: 02/09/19 23:48 Dose: 150 mls/hr Nitroglycerin (Nitroglycerin) 2.5 mg PO ONETIME ONE Stop: 02/09/19 19:50 Last Admin: 02/09/19 21:11 Dose: Not Given Nitroglycerin (Nitro-Bid 2%) 1 gm TOP ONETIME ONE Stop: 02/09/19 19:59 Last Admin: 02/09/19 20:10 Dose: 1 gm Nitroglycerin (Nitro-Bid 2%) Confirm Administered Dose 1 gm .ROUTE .STK-MED ONE Stop: 02/09/19 19:59 Last Admin: 02/09/19 20:48 Dose: Not Given <Santo Capone - Last Filed: 02/13/19 12:15> Discharge Summary - Referral to Home Health Primary Care Physician: PCP Unknown - Patient Data Vitals - Most Recent: Last Vital Signs Temp 36.4 C 02/10/19 07:00 Pulse 57 L 02/10/19 07:00 Resp 18 02/10/19 07:00 BP 156/70 H 02/10/19 07:00 Pulse Ox 99 02/10/19 07:00 Med Orders - Current: Current Medications Discontinued Medications Acetaminophen (Tylenol) 650 mg PO Q6H PRN PRN Reason: Pain Last Admin: 02/09/19 23:53 Dose: 650 mg Aspirin (Aspirin) 324 mg PO ONETIME ONE Stop: 02/09/19 19:49 Last Admin: 02/09/19 20:05 Dose: 324 mg Hydrochlorothiazide (Hydrochlorothiazide) 25 mg PO ONETIME ONE Stop: 02/09/19 22:34 Last Admin: 02/09/19 23:48 Dose: 25 mg Sodium Chloride (Normal Saline) 1,000 mls @ 150 mls/hr IV ASDIRECTED IZABELA Stop: 02/10/19 05:24 Last Admin: 02/09/19 23:48 Dose: 150 mls/hr Nitroglycerin (Nitroglycerin) 2.5 mg PO ONETIME ONE Stop: 02/09/19 19:50 Last Admin: 02/09/19 21:11 Dose: Not Given Nitroglycerin (Nitro-Bid 2%) 1 gm TOP ONETIME ONE Stop: 02/09/19 19:59 Last Admin: 02/09/19 20:10 Dose: 1 gm Nitroglycerin (Nitro-Bid 2%) Confirm Administered Dose 1 gm .ROUTE .STK-MED ONE Stop: 02/09/19 19:59 Last Admin: 02/09/19 20:48 Dose: Not Given Sodium Chloride (Saline Flush) 10 ml FLUSH ASDIRECTED PRN PRN Reason: Keep Vein Open Sodium Chloride (Saline Flush) 2.5 ml FLUSH ASDIRECTED PRN PRN Reason: Keep Vein Open - Free Text/Narrative Note: I have examined patient with resident. I have discussed findings and treatment plan with the resident. I agree with the assessment and plan as outlined in the following note.
== END 2019-02-10 11:50 | disposition home or self-care (01) ==
LOC: MW.ED 18:18 → MW.MS 20:09
PROVIDERS: ADMIT Internal Medicine; ATTEND Internal Medicine
DX: R07.9 Chest pain, unspecified (principal); I10 Essential (primary) hypertension; E78.00 Pure hypercholesterolemia, unspecified; E11.9 Type 2 diabetes mellitus without complications; D64.9 Anemia, unspecified; E66.9 Obesity, unspecified; Z68.41 Body mass index [BMI] 40.0-44.9, adult; Z79.84 Long term (current) use of oral hypoglycemic drugs; Z79.899 Other long term (current) drug therapy
CPT/HCPCS: 36415; 71045; 80048; 80053; 81003; 82962; 84484; 85025; 87804; 93005; 99285; A9270; G0378; J7030; 99283